=== PATIENT | female | born 1955 | race Caucasian/White ===

== ENCOUNTER → 2018-01-18 | Outpatient (CLI) | payer MEDICARE, OTHER ==
[~2018-01-18] MED LIST: ALBU90OI INH; ALBU90OI61 INH; AMPDEX10 PO; ATOR20 PO; ATOR40TA PO; Adderall 15 MG15 MG PO; BENZ100A PO; Benadryl 50 mg50 MG PO; Bystolic20 MG PO; CYCL10 PO; ESCI20 PO; HYDACE5 PO; HYDCHL12.5 PO; HYDR1TAB94 PO; LEVO750 PO; LEVSOD100 PO; LEVSOD150 PO; LISHYD2025 PO; LISI5 PO; LORA.5 PO; META800 PO; METF500 PO; NAPR500 PO; NEBI10 PO; Naprosyn500 MG PO; Norco 10-325 T1 EACH PO; Norco 5-325 Ta1 EACH PO; POTCHL10ER PO; Prednisone50 MG PO; TOBR.3OPSO BOTHEYES; VENL150ER PO; VENL75ER PO; ZESTORETIC 20-121 EA PO
[2018-01-19 09:37] LABS: Candida species (DNA Probe) Negative (NEGATIVE); G. vaginalis (DNA Probe) Negative (NEGATIVE); T. vaginalis (DNA Probe) Negative (NEGATIVE)
== END | disposition home or self-care (01) ==
LOC: LAB SHORT 13:50 → LAB 13:50
PROVIDERS: Obstetrics & Gynecology
DX: Z01.419 Encounter for gynecological examination (general) (routine) without abnormal findings (principal); N76.0 Acute vaginitis
CPT/HCPCS: 87480; 87510; 87624; 87660; G0123

== ENCOUNTER → 2018-03-01 | Outpatient (CLI) | payer MEDICARE, OTHER ==
[2018-03-01 12:49] LABS: Source, Urine Clean Catch
[2018-03-01 13:44] LABS: Appearance, Urine Clear (Clear); Bilirubin, Urine Neg (Neg); Blood, Urine Neg (Neg); Color, Urine Yellow (P-Yellow); Glucose Qualitative, Urine Neg (Normal); Ketones, Urine Neg (Neg); Leukocyte Esterase, Urine Neg (Neg); Nitrite, Urine Neg (Neg); Protein, Urine Neg (Neg); Urobilinogen, Urine NORM (Normal)
[2018-03-01 16:05] LABS: Protein, Urine Random 22.4 mg/dL (0.0-11.9)
== END ==
LOC: LAB SHORT 11:45 → LAB EV 11:45
PROVIDERS: Internal Medicine
DX: N18.3 Chronic kidney disease, stage 3 (moderate) (principal)
CPT/HCPCS: 81003; 82570; 84156

== ENCOUNTER 2018-11-25 23:43 | Inpatient (IN) | payer MEDICARE, OTHER ==
[~2018-11-25] VITALS: Ht 152.4 cm; Wt 87.2 kg
[~2018-11-25 23:43] MED LIST changes: -LEVSOD100 PO; +LEVSOD125 PO
[2018-11-26 00:10] LABS: BASOPHILS ABSOLUTE AUTO 0.03 K/mm3 (0.00-0.23); BASOPHILS PERCENT AUTO 0 % (0-2); EOSINOPHILS PERCENT AUTO 2 % (0-6); Hematocrit 41.8 % (33.0-51.0); Hemoglobin 13.7 g/dL (11.5-16.0); IMMATURE GRAN ABSOLUTE AUTO 0.01 K/mm3 (0.00-0.10); IMMATURE GRAN PERCENT AUTO 0 % (0-1); LYMPHOCYTES ABSOLUTE AUTO 1.27 K/mm3 (0.84-5.20); LYMPHOCYTES PERCENT AUTO 16 % (21-46); MONOCYTES ABSOLUTE AUTO 0.93 K/mm3 (0.16-1.47); MONOCYTES PERCENT AUTO 11 % (4-13); Mean Corpuscular HGB 30.2 pg (26.0-34.0); Mean Corpuscular HGB Conc 32.8 g/dL (31.5-36.5); Mean Corpuscular Volume 92 fL (80-100); Mean Platelet Volume 9.8 fL (9.1-12.4); NEUTROPHILS ABSOLUTE AUTO 5.74 K/mm3 (1.96-9.15); NEUTROPHILS PERCENT AUTO 70 % (41-73); Platelet Count 222 K/mm3 (150-400); RDW Standard Deviation 47.2 fL (35.1-46.3); Red Blood Cell Count 4.54 M/mm3 (3.80-5.20); White Blood Cell Count 8.18 K/mm3 (4.00-11.30)
[2018-11-26 00:13] LABS: PCO2 Arterial 43.8 mmHg (35-45); PO2 Arterial 75.3 mmHg (80-100); pH Blood Arterial 7.41 (7.35-7.45)
[2018-11-26 00:31] LABS: Alanine Aminotransfer (ALT/SGP 39 U/L (12-78); Albumin, Blood 3.3 g/dL (3.4-5.0); Albumin/Globulin Ratio 0.7 (0.8-1.8); Alk Phos 91 U/L (50-136); Anion Gap 8 mmol/L (6-16); Aspartate Aminotrans (AST/SGOT 27 U/L (12-37); Bilirubin, Total 0.3 mg/dL (0.1-1.0); Blood Urea Nitrogen 25 mg/dL (8-24); Bun/Creatinine Ratio 19.4 (12.0-20.0); CO2, Blood 27 mmol/L (21-32); Calcium, Blood 8.8 mg/dL (8.5-10.1); Chloride, Blood 103 mmol/L (98-108); Creatinine, Blood 1.29 mg/dL (0.40-1.00); Globulin, Blood 4.6 g/dL (2.2-4.0); Glomerular Filtration Rate 44 (60-); Glucose, Blood 142 mg/dL (70-99); Sodium, Blood 138 mmol/L (136-145); Total Protein, Blood 7.9 g/dL (6.4-8.2); Troponin I <0.015 ng/mL (0.000-0.040)
[2018-11-26 03:38] LABS: Influenza A Negative (NEGATIVE)
[2018-11-26 03:39] LABS: Influenza B Negative (NEGATIVE)
--- NOTE | 2018-11-26 04:49 | NUR ---
Notified charge nurse as well as nurse film editor supervisor that this transfer did not seem safe to me as a nurse, I was informed I had to take her anyway, they were doing the best the could and could not stop a hospital because the computer was down, the er nurse was very helpful and knowlegable but did not have access to labs or any other written history of pt and had to report from memory, due to change in procedure and necissity to process by hand medication was slow to be approved, they had to be safe, all this added up to a pt who did not receive her medication when it was perscribed, pt was not in pixus, and the medtech was unavailable, staff was wonderful and helpful but it seemed nonproductive to move a critical pt out of ER to [facility] knowing that any error would be compounded by the move and the chance of error was exponential due to the change in procedure and lack of resources
--- NOTE | 2018-11-26 07:21 | NUR ---
a+o, 2Lvia nc, infusing abx, call light in reach, will continue to monitor and treat until complete walking rounds
[2018-11-26] MEDS ORDERED: Zestril30 MG PO (11:34)
[2018-11-26] MEDS ORDERED: Fenofibrate134 MG PO (11:36)
--- NOTE | 2018-11-26 18:18 | NUR ---
SHIFT SUMMARY PT HAS BEEN COOPERATIVE THROUGHOUT THE SHIFT. SHE WAS ABLE TO GET UP AND WALK TO THE BR WITH STAFF BUT HAS EPISODES WHERE SHE LOSES HER BALANCE. SHE HAS HAD FAMILY COME VISIT. SHE APPEARS CONFUSED AT TIMES AND FORGETFUL. SHE TOOK HER MEDICATIONS WITHOUT INCIDENT. SHE IS DIAPHORETIC THROUGHOUT THE DAY AND STATES THIS IS NORMAL FOR HER.
--- NOTE | 2018-11-26 18:42 | NUR ---
PT TAKEN OFF O2 BRIEFLY TODAY, PT DESAT DOWN TO 87-88, PT PLACED BACK ON 2L NC
[2018-11-27 05:12] LABS: BASOPHILS PERCENT AUTO 0 % (0-2); EOSINOPHILS ABSOLUTE AUTO 0.01 K/mm3 (0.00-0.68); EOSINOPHILS PERCENT AUTO 0 % (0-6); Hematocrit 39.4 % (33.0-51.0); Hemoglobin 12.4 g/dL (11.5-16.0); IMMATURE GRAN ABSOLUTE AUTO 0.03 K/mm3 (0.00-0.10); IMMATURE GRAN PERCENT AUTO 0 % (0-1); LYMPHOCYTES ABSOLUTE AUTO 0.92 K/mm3 (0.84-5.20); LYMPHOCYTES PERCENT AUTO 12 % (21-46); MONOCYTES ABSOLUTE AUTO 0.34 K/mm3 (0.16-1.47); MONOCYTES PERCENT AUTO 4 % (4-13); Mean Corpuscular HGB 29.2 pg (26.0-34.0); Mean Corpuscular HGB Conc 31.5 g/dL (31.5-36.5); Mean Corpuscular Volume 93 fL (80-100); Mean Platelet Volume 10.3 fL (9.1-12.4); NEUTROPHILS ABSOLUTE AUTO 6.64 K/mm3 (1.96-9.15); NEUTROPHILS PERCENT AUTO 84 % (41-73); Platelet Count 210 K/mm3 (150-400); RDW Standard Deviation 47.7 fL (35.1-46.3); Red Blood Cell Count 4.24 M/mm3 (3.80-5.20); White Blood Cell Count 7.94 K/mm3 (4.00-11.30)
[2018-11-27 06:03] LABS: Albumin, Blood 2.9 g/dL (3.4-5.0); Bun/Creatinine Ratio 24.7 (12.0-20.0); Calcium, Blood 8.8 mg/dL (8.5-10.1); Creatinine, Blood 1.66 mg/dL (0.40-1.00); Magnesium, Blood 2.3 mg/dL (1.6-2.4); Phosphorus, Blood 4.3 mg/dL (2.5-4.9); Potassium, Blood 4.4 mmol/L (3.5-5.5)
[2018-11-27 06:05] LABS: Albumin/Globulin Ratio 0.7 (0.8-1.8); Bilirubin, Total 0.2 mg/dL (0.1-1.0); Globulin, Blood 4.3 g/dL (2.2-4.0); Total Protein, Blood 7.2 g/dL (6.4-8.2)
--- NOTE | 2018-11-27 07:24 | NUR ---
a+o, call light in reach, nonproductive cough, saline locked, walking rounds completed with day staff
--- NOTE | 2018-11-27 18:05 | NUR ---
SHIFT SUMMARY- PT AXO X3. PT FORGETFUL. PT DENIES PAIN. DENIES SOB AT REST. DYSPNEA UPON EXERTION. 91% ON 2L O2 NC. DENIES N/V. FAMILY IN TO VISIT THIS PM. SBA TO THE BATHROOM. PT AWAITING HOME O2 EVAL. NO OTHER SIGNIFICANT CHANGES THIS SHIFT.
--- NOTE | 2018-11-28 07:18 | NUR ---
a+o, very cheerful and eager to please, non productive cough, call light in reach, saline locked, 2L via nc, walking rounds completed with returning day staff, looking forward to going home
[2018-11-28] MEDS ORDERED: AZIT250 PO (11:31)
[2018-11-28] MEDS ORDERED: Florastor250 MG PO (11:33)
[2018-11-28] MEDS ORDERED: PRED10 PO (11:33)
[2018-11-28] MEDS ORDERED: BUDE10.22 INH (11:34)
--- NOTE | 2018-11-28 14:16 | NUR ---
Called to meet with patient. She is awaiting her oxygena nd she is discharging home. Pt is embarrassed and stessed. She relayed her history with her adhd and her anexiety and depression. Review mellisa strategies of diversion from her anexiety. Pt switched to vaping to try to quit smoking. she states she is having with drawls. Review of care and when to contact phsycian. review of with drawls and care needs. did visualization with her she expressed its usefulness.
--- NOTE | 2018-11-28 15:55 | NUR ---
D/C INSTRUCTIONS PROVIDED AND EXPLAINED TO PT. IV REMOVED. PT D/C VIA WHEELCHAIR WITH ESCORT AND SIGNIFICANT OTHER AT 1555.
== END 2018-11-28 15:46 | disposition home or self-care (01) | DRG 189 ==
LOC: ER 23:43 → MEDS 11-26 01:15 → ENPENDDIS 11-28 09:23 → MEDS 11-28 15:46
PROVIDERS: Emergency Medicine; Hospitalist; ADMIT Hospitalist
DX: J96.01 Acute respiratory failure with hypoxia (principal); J44.1 Chronic obstructive pulmonary disease with (acute) exacerbation; E03.9 Hypothyroidism, unspecified; E66.01 Morbid (severe) obesity due to excess calories; G47.33 Obstructive sleep apnea (adult) (pediatric); F90.9 Attention-deficit hyperactivity disorder, unspecified type; I13.10 Hypertensive heart and chronic kidney disease without heart failure, with stage 1 through stage 4 chronic kidney disease, or unspecified chronic kidney disease; E11.22 Type 2 diabetes mellitus with diabetic chronic kidney disease; N18.3 Chronic kidney disease, stage 3 (moderate); Z87.891 Personal history of nicotine dependence; Z68.35 Body mass index [BMI] 35.0-35.9, adult; I51.89 Other ill-defined heart diseases; F32.9 Major depressive disorder, single episode, unspecified; M54.5 Low back pain
CPT/HCPCS: 36415; 36600; 71045; 80053; 82803; 82947; 83735; 83880; 84100; 84145; 84484; 85025; 87804; 93005; 93010; 93306; 94640; 94667; 94761; 94762; 96374; 99285-25; A9270-GY; J0456; J0696; J1650; J2543; J2920; J2930; J7050

== ENCOUNTER 2019-01-09 22:29 | Emergency (ER) | payer MEDICARE, OTHER ==
[~2019-01-09] VITALS: Ht 152.4 cm; Wt 85.7 kg
[~2019-01-09 22:29] MED LIST changes: +AZIT250 PO; +BUDE10.22 INH; +Fenofibrate134 MG PO; +Florastor250 MG PO; +PRED10 PO; +Zestril30 MG PO
[2019-01-10] MEDS ORDERED: TRAM50 PO (01:21)
== END 2019-01-10 01:29 | disposition home or self-care (01) ==
LOC: ER 22:29
DX: S00.03XA Contusion of scalp, initial encounter (principal); W18.30XA Fall on same level, unspecified, initial encounter; Z88.2 Allergy status to sulfonamides; Z88.1 Allergy status to other antibiotic agents; Z88.8 Allergy status to other drugs, medicaments and biological substances; Z79.899 Other long term (current) drug therapy; Z79.52 Long term (current) use of systemic steroids; E03.9 Hypothyroidism, unspecified; F32.9 Major depressive disorder, single episode, unspecified; J44.9 Chronic obstructive pulmonary disease, unspecified; F17.290 Nicotine dependence, other tobacco product, uncomplicated
CPT/HCPCS: 70450; 99283-25; A9270-GY

== ENCOUNTER 2019-02-11 23:40 | Emergency (ER) | payer MEDICARE, OTHER ==
[~2019-02-11] VITALS: Ht 152.4 cm; Wt 84.8 kg
[~2019-02-11 23:40] MED LIST changes: +TRAM50 PO
[2019-02-12 00:23] LABS: BASOPHILS ABSOLUTE AUTO 0.03 K/mm3 (0.00-0.23); BASOPHILS PERCENT AUTO 0 % (0-2); EOSINOPHILS ABSOLUTE AUTO 0.18 K/mm3 (0.00-0.68); EOSINOPHILS PERCENT AUTO 2 % (0-6); Hematocrit 39.9 % (33.0-51.0); Hemoglobin 12.8 g/dL (11.5-16.0); IMMATURE GRAN ABSOLUTE AUTO 0.02 K/mm3 (0.00-0.10); IMMATURE GRAN PERCENT AUTO 0 % (0-1); LYMPHOCYTES ABSOLUTE AUTO 2.28 K/mm3 (0.84-5.20); LYMPHOCYTES PERCENT AUTO 26 % (21-46); MONOCYTES ABSOLUTE AUTO 0.78 K/mm3 (0.16-1.47); MONOCYTES PERCENT AUTO 9 % (4-13); Mean Corpuscular HGB 29.9 pg (26.0-34.0); Mean Corpuscular HGB Conc 32.1 g/dL (31.5-36.5); Mean Corpuscular Volume 93 fL (80-100); Mean Platelet Volume 10.3 fL (9.1-12.4); NEUTROPHILS ABSOLUTE AUTO 5.47 K/mm3 (1.96-9.15); NEUTROPHILS PERCENT AUTO 63 % (41-73); Platelet Count 233 K/mm3 (150-400); RDW Coefficient Variation 14.4 % (11.7-14.2); RDW Standard Deviation 49.4 fL (35.1-46.3); Red Blood Cell Count 4.28 M/mm3 (3.80-5.20); White Blood Cell Count 8.76 K/mm3 (4.00-11.30)
[2019-02-12 00:44] LABS: Albumin, Blood 3.5 g/dL (3.4-5.0); Albumin/Globulin Ratio 0.8 (0.8-1.8); Bilirubin, Total 0.2 mg/dL (0.1-1.0); Bun/Creatinine Ratio 16.1 (12.0-20.0); Calcium, Blood 9.5 mg/dL (8.5-10.1); Creatinine, Blood 1.68 mg/dL (0.40-1.00); Globulin, Blood 4.5 g/dL (2.2-4.0); Potassium, Blood 3.8 mmol/L (3.5-5.5); Troponin I 0.037 ng/mL (0.000-0.040)
== END 2019-02-12 02:39 | disposition home or self-care (01) ==
LOC: ER 23:40
PROVIDERS: Emergency Medicine
DX: S20.212A Contusion of left front wall of thorax, initial encounter (principal); W19.XXXA Unspecified fall, initial encounter; Z88.2 Allergy status to sulfonamides; Z88.1 Allergy status to other antibiotic agents; Z88.8 Allergy status to other drugs, medicaments and biological substances; Z79.899 Other long term (current) drug therapy; F32.9 Major depressive disorder, single episode, unspecified; J44.9 Chronic obstructive pulmonary disease, unspecified; I10 Essential (primary) hypertension; F90.9 Attention-deficit hyperactivity disorder, unspecified type; Z87.891 Personal history of nicotine dependence
CPT/HCPCS: 36415; 71046; 80053; 84484; 85025; 93005; 93010; 99284-25

== ENCOUNTER 2019-09-01 18:09 | Inpatient (IN) | payer MEDICARE, OTHER ==
[~2019-09-01] VITALS: Ht 160 cm; Wt 92.0 kg
[~2019-09-01 18:09] MED LIST changes: +EUTHYROX125 MCG PO; -LEVSOD125 PO; +Prinivil10 MG PO; -Zestril30 MG PO
[2019-09-01 18:45] LABS: BASOPHILS ABSOLUTE AUTO 0.02 K/mm3 (0.00-0.23); BASOPHILS PERCENT AUTO 0 % (0-2); EOSINOPHILS ABSOLUTE AUTO 0.06 K/mm3 (0.00-0.68); EOSINOPHILS PERCENT AUTO 1 % (0-6); IMMATURE GRAN ABSOLUTE AUTO 0.04 K/mm3 (0.00-0.10); IMMATURE GRAN PERCENT AUTO 1 % (0-1); LYMPHOCYTES PERCENT AUTO 8 % (21-46); MONOCYTES ABSOLUTE AUTO 0.91 K/mm3 (0.16-1.47); MONOCYTES PERCENT AUTO 12 % (4-13); Mean Corpuscular HGB 29.5 pg (26.0-34.0); Mean Corpuscular HGB Conc 32.5 g/dL (31.5-36.5); Mean Corpuscular Volume 91 fL (80-100); Mean Platelet Volume 10.2 fL (9.1-12.4); NEUTROPHILS ABSOLUTE AUTO 5.75 K/mm3 (1.96-9.15); NEUTROPHILS PERCENT AUTO 78 % (41-73); Platelet Count 234 K/mm3 (150-400); RDW Coefficient Variation 14.8 % (11.7-14.2); RDW Standard Deviation 49.4 fL (35.1-46.3); White Blood Cell Count 7.38 K/mm3 (4.00-11.30)
[2019-09-01 18:55] LABS: Albumin, Blood 3.5 g/dL (3.4-5.0); Albumin/Globulin Ratio 0.7 (0.8-1.8); Bilirubin, Total 0.3 mg/dL (0.1-1.0); Bun/Creatinine Ratio 18.7 (12.0-20.0); Calcium, Blood 9.5 mg/dL (8.5-10.1); Creatinine, Blood 1.23 mg/dL (0.40-1.00); Globulin, Blood 4.7 g/dL (2.2-4.0); Potassium, Blood 3.8 mmol/L (3.5-5.5); Total Protein, Blood 8.2 g/dL (6.4-8.2)
[2019-09-01 19:27] LABS: PCO2 Arterial 45.3 mmHg (35-45); PO2 Arterial 72.8 mmHg (80-100); pH Blood Arterial 7.41 (7.35-7.45)
[2019-09-01 19:42] LABS: Source, Urine Catheter
[2019-09-01 19:45] LABS: Appearance, Urine Clear (Clear); Bilirubin, Urine Neg (Neg); Blood, Urine 4+ (Neg); Color, Urine Yellow (P-Yellow); Glucose Qualitative, Urine Neg (Neg); Ketones, Urine Neg (Neg); Leukocyte Esterase, Urine Neg (Neg); Nitrite, Urine Neg (Neg); Protein, Urine 3+ (Neg); Specific Gravity, Urine 1.015 (1.003-1.022); Urobilinogen, Urine 1+ (Normal)
[2019-09-01 19:51] LABS: Amorphous Light (0-Heavy); Bacteria Few /hpf; Hyaline Casts 0-2 /lpf (0-2); Squamous Epithelial Cells Few /hpf (Few); White Blood Cells, Urine 0-2 /hpf (0-5)
[2019-09-01 21:34] LABS: U Amphetamine Screen DETECTED; U Barbituate Screen Not Detected; U Benzodiazapine Screen Not Detected; U Buprenorphine Screen Not Detected; U Cannabinoids Screen Not Detected; U Cocaine Screen Not Detected; U Methadone Screen Not Detected; U Methamphetamine Screen DETECTED; U Opiates Screen DETECTED; U Oxycodone Screen Not Detected; U Phencyclidine Screen Not Detected; U Propoxyphene Screen Not Detected
[2019-09-02] MEDS ORDERED: ASPIR 8181 M1 PO (00:27)
[2019-09-02] MEDS ORDERED: STIOLTO RESPIMAT4 GM (00:59)
--- NOTE | 2019-09-02 02:25 | NUR ---
ADMISSION: PATIENT ARRIVED TO [facility] AT APPROX 0016 VIA GURNEY FROM ER, PATIENT UNSTEADY ON FEET AND OFF BALANCEWITH STANDING. PATIENT 2 PERSON WITH FWW TO BS, SKIN C/D/I. ADMISSION COMPLETED AND PATIENT ORIENTED TO ROOM, CALL LIGHT AND HOSPITAL POLICIES. PATIENT ALERT AND ABLE TO ANSWER QUESTIONS APPROPRIATLY AT THIS TIME. BEDSIDE SWALLOW SCREEN COMPLETED, PATIENT PASSED, DIET ORDERED PER HOSE OPERATOR. VSS, CALL LIGHT WITHIN REACH, BED LOW AND LOCKED WITH EXIT ALARM ON.
[2019-09-02 04:19] LABS: Hematocrit 37.8 % (33.0-51.0); Mean Corpuscular HGB 29.3 pg (26.0-34.0); Mean Corpuscular HGB Conc 31.7 g/dL (31.5-36.5); Mean Corpuscular Volume 92 fL (80-100); Mean Platelet Volume 10.2 fL (9.1-12.4); Platelet Count 226 K/mm3 (150-400); RDW Coefficient Variation 15.2 % (11.7-14.2); RDW Standard Deviation 51.4 fL (35.1-46.3); Red Blood Cell Count 4.09 M/mm3 (3.80-5.20); White Blood Cell Count 5.69 K/mm3 (4.00-11.30)
[2019-09-02 04:37] LABS: Albumin, Blood 2.9 g/dL (3.4-5.0); Albumin/Globulin Ratio 0.6 (0.8-1.8); Bilirubin, Total 0.2 mg/dL (0.1-1.0); Bun/Creatinine Ratio 18.8 (12.0-20.0); Calcium, Blood 8.8 mg/dL (8.5-10.1); Creatinine, Blood 1.49 mg/dL (0.40-1.00); Globulin, Blood 4.5 g/dL (2.2-4.0); Potassium, Blood 3.8 mmol/L (3.5-5.5); Total Protein, Blood 7.4 g/dL (6.4-8.2)
--- NOTE | 2019-09-02 06:28 | NUR ---
shift summary: patient compliant with care, using call light appropriatly, 2 person max assist to bsc, vss. no other changes noted, call light within reach, bed low and locked with exit alarm on.
--- NOTE | 2019-09-02 09:15 | NUR ---
ASSUMPTION NOTE ASSUMED CARE OF PT AT APPROX 0700. PT RESTING IN BED, APPEARS TO BE SLEEPING. CPAP IN PLACE WITH 3L BLEED IN; PT DESATURATING TO 86-87% TITRATED BLEED IN TO 4L O2 WITH SPO2 AT 90%. PT ON 2L O2 VIA NC WHILE AWAKE CURRENTLY SPO2 90-91%; LS DIM IN BASES WITH FAINT EXP WHEEZE IN BILATERAL UPPER LOBES. PT RESP RATE 16-20; NONPRODUCTIVE HARSH COUGH NOTED; PT REPORTS RIB TENDERNESS WITH COUGHING. PT A&Ox3. CALM AND COOPERATIVE WITH CARE. REPOSITIONED IN BED WITH 2 PERSON ASSIST, ENCOURAGED PT TO ASSIST WITH REPOSITIONING. ABD DISTENDED; SOFT, NONTENDER, WITH NORMOACTIVE BOWEL TONES. ELEVATED BP THIS AM, MEDICATED WITH SCHEDULE MEDCIATIONS. AFEBRILE. PT SITTING UP IN BED EATING BREAKFAST. WILL CONTINUE TO MONITOR.
--- NOTE | 2019-09-02 15:28 | NUR ---
Echocardiogram completed.
--- NOTE | 2019-09-02 18:33 | NUR ---
SHIFT SUMMARY PT REPORTING PAIN IN BACK AND SHOULDER; MEDICATED WITH TYLENOL WITH MINIMAL RELEIF; PT REQUESTING HOME NORCO; NOTIFIED DR KEY; NEW ORDERS FOR HOME NORCO. PT FEBRILE THIS AFTERNOON; DR KEY NOTIFIED; PT HAS HAD COUGH " FOR A COUPLE OF DAYS"; NEW ORDERS FOR RESP PANEL, PENDING. ORDERS TO SEND UA TO LAB FOR AMPH COMFIRMATION, STILL NEEDING URINE. CBG AC; THIS EVENING 123. EKG AND ECHO COMPLETED DURING SHIFT. TROP ELEVATED; NOTIFIED DR KEY; NEW ORDERS FOR CARDIOLOGY CONSULT; DR FISHER AT BEDSIDE THIS AFTERNOON. NO OTHER ACUTE CHANGES NOTED DURING SHIFT. WILL CONTINUE TO MONITOR UNTIL REPORT GIVEN TO ONCOMING RN.
[2019-09-03 00:08] LABS: Adenovirus Not Detected (NOT DETECT); Bordetella pertussis Not Detected (NOT DETECT); Chlamydophila pneumoniae Not Detected (NOT DETECT); Coronavirus 229E Not Detected (NOT DETECT); Coronavirus HKU1 Not Detected (NOT DETECT); Coronavirus NL63 Not Detected (NOT DETECT); Coronavirus OC43 Not Detected (NOT DETECT); Human Metapneumovirus Not Detected (NOT DETECT); Human Rhinovirus/Enterovirus Not Detected (NOT DETECT); Influenza A Detected (NOT DETECT); Influenza A/2009-H1 Detected (NOT DETECT); Influenza A/H1 Not Detected (NOT DETECT); Influenza A/H3 Not Detected (NOT DETECT); Influenza B Not Detected (NOT DETECT); Mycoplasma pneumoniae Not Detected (NOT DETECT); Parainfluenza Virus 1 Not Detected (NOT DETECT); Parainfluenza Virus 2 Not Detected (NOT DETECT); Parainfluenza Virus 3 Not Detected (NOT DETECT); Parainfluenza Virus 4 Not Detected (NOT DETECT); Respiratory Syncytial Virus Not Detected (NOT DETECT)
[2019-09-03 04:31] LABS: Albumin, Blood 2.9 g/dL (3.4-5.0); Albumin/Globulin Ratio 0.7 (0.8-1.8); Bilirubin, Total 0.3 mg/dL (0.1-1.0); Bun/Creatinine Ratio 22.1 (12.0-20.0); Calcium, Blood 8.5 mg/dL (8.5-10.1); Creatinine, Blood 1.49 mg/dL (0.40-1.00); Globulin, Blood 4.4 g/dL (2.2-4.0); Total Protein, Blood 7.3 g/dL (6.4-8.2)
--- NOTE | 2019-09-03 05:40 | NUR ---
SHIFT SUMMARY: PATEINT MEDICATED FOR PAIN X1 THIS SHIFT, INTERMITTENT TEMPERATURE, SLEPT WELL. PATIENT RESPERATORY PANEL POSITIVE FOR INFLUENZA A, TROPONINS TRENDING DOWN. UA SENT FOR FOLLOW UP TEST, BED LOW AND LOCKED, CALL LIGHT WITHIN REACH, EXIT ALARM ON.
--- NOTE | 2019-09-03 08:40 | NUR ---
ASSUMPTION OF CARE PT RESTING IN BED; RESPONDING TO VERBAL STIMULI; WAKING LONG ENOUGH TO ANSWER QUESTIONS; LETHARGIC. SPO2 89-94 ON 3L O2 VIA NC; LS DIM SCATTERED WHEEZES IN UPPER LOBES. TACHYPNIC AT TIMES; BREATHING SHALLOW AND EVEN. COUGHING NOTED WITH DEEP BREATH; NONPRODUCTIVE AND HARSH. PT DENIES PAIN, NAUSEA AND DIZZINESS AT THIS TIME. PT STATES SHE WAS TO EAT THIS AM, UNALBE TO STAY AWAKE, HELD BREAKFAST. ELEVATED BP NOTED; ADMINISTERED SCHEDULED MEDICATIONS. OTHER VSS. WILL CONTINUE TO MONITOR.
--- NOTE | 2019-09-03 17:39 | NUR ---
SHIFT SUMMARY PT RESPONDING TO VERBAL STIMULI, ORIENTED x3; LETHARGIC; COOPERATIVE WITH CARE. PT RESTING IN BED DURING SHIFT. PT REPOSITIONED Q2; PT ASSISTS. SPO2 90-96% CURRENTLY ON 4L O2 VIA NC, CPAP WITH 3-4 BLEED IN. PT DENIES PAIN, CHEST PAIN/PRESSURE, NAUSEA AND DIZZINESS. PT STARTED ON TAMIFLU THIS AM. VSS. NO OTHER ACUTE CHANGES NOTED DURING SHIFT. WILL CONTINUE TO MONITOR UNTIL REPORT GIVEN TO ONCOMING RN.
--- NOTE | 2019-09-03 18:29 | NUR ---
PT ALERT, SITTING IN BED, BOYFRIEND AT BED SIDE ASSISTING WITH DINNER. WILL CONTINUE TO MONITOR.
--- NOTE | 2019-09-04 05:28 | NUR ---
END OF SHIFT SUMMARY PT CONTINUES TO BE VERY LETHARGIC BUT DOES WAKE AND SPEAK WITH SDTAF APPROPRIATELY. VSS. PT HAS TOLERATED CPAP ALL NIGHT. RT TO ROOM T/O NIGHT TO ADJUST SETTINGS PT HAS DESATTED A FEW TIMES INTO THE LOW 80'S. PT LUNG SOUNDS WHEEZY, HAS REQUIRED RT TREATMWENTS WELL. PT INCONTINENT T/O NIGHT. STAFF HAS BEEN TURNING AND CLEANING PT. OTHERWISE, PT HAS BEEN VERY PLEASANT AND COOPERATIVE AND HAS EVEN HELPED WITH TURNING. WILL CONTINUE TO MONITOR UNTIL SHIFT CHANGE.
[2019-09-04 05:40] LABS: BASOPHILS ABSOLUTE AUTO 0.01 K/mm3 (0.00-0.23); BASOPHILS PERCENT AUTO 0 % (0-2); EOSINOPHILS ABSOLUTE AUTO 0.01 K/mm3 (0.00-0.68); EOSINOPHILS PERCENT AUTO 0 % (0-6); Hematocrit 37.3 % (33.0-51.0); Hemoglobin 11.6 g/dL (11.5-16.0); IMMATURE GRAN ABSOLUTE AUTO 0.01 K/mm3 (0.00-0.10); IMMATURE GRAN PERCENT AUTO 0 % (0-1); LYMPHOCYTES ABSOLUTE AUTO 1.18 K/mm3 (0.84-5.20); LYMPHOCYTES PERCENT AUTO 20 % (21-46); MONOCYTES PERCENT AUTO 12 % (4-13); Mean Corpuscular HGB 29.2 pg (26.0-34.0); Mean Corpuscular HGB Conc 31.1 g/dL (31.5-36.5); Mean Corpuscular Volume 94 fL (80-100); Mean Platelet Volume 10.5 fL (9.1-12.4); NEUTROPHILS PERCENT AUTO 68 % (41-73); Platelet Count 180 K/mm3 (150-400); RDW Coefficient Variation 15.7 % (11.7-14.2); RDW Standard Deviation 54.1 fL (35.1-46.3); Red Blood Cell Count 3.97 M/mm3 (3.80-5.20); White Blood Cell Count 6.01 K/mm3 (4.00-11.30)
--- NOTE | 2019-09-04 19:24 | NUR ---
SHIFT SUMMARY: NO ACUTE CHANGES TO REPORT THIS SHIFT. PT ALERT; LETHARGIC DURING FIRST HALF OF SHIFT; COOPERATIVE WITH CARE. BIPAP ON T/O SHIFT. NO C/O PAIN THIS SHIFT. POC GLUCOSE STABLE; NO COVERAGE REQUIRED THIS SHIFT. IV ABX CONTINUING. REPORT GIVEN TO ONCOMING RN.
[2019-09-05 04:30] LABS: Calcium, Blood 8.3 mg/dL (8.5-10.1); Creatinine, Blood 1.93 mg/dL (0.40-1.00); Potassium, Blood 4.5 mmol/L (3.5-5.5)
--- NOTE | 2019-09-05 04:30 | NUR ---
END OF SHIFT SUMMARY NO ACUTE CHANGES THIS SHIFT. VSS. AFEBRILE. PT STILL LETHARGIC BUT MAKES APPROPRIATE CONVERSAtion and is overall much more alert this shift. REMAINS ON 5LNC OR 5L BLEED IN CPAP. SPO2 REMAINS >92%. PT HAS BEEN TURNMED BY STAFF WELL HAD MULTIPLE INCONTINENCE CHECKS/BRIEF CHANGES. LUNGS STILL WHEEZY AND SOMEWHAT COARSE TO AUSCULTATION BUT SHOWS IMPROVEMENT. WILL CONTINUE TO MONITOR UNTIL SHIFT CHANGE.
--- NOTE | 2019-09-05 08:30 | NUR ---
ASSUMPTION OF CARE RECEIVED REPORT FROM BRANCH GENERAL MANAGER YOLIE CHAPMAN AROUND 704. PER SHIFT REPORT, PT CAN BE LETHARGIC AT TIMES, BUT IS OVERALL IMPROVING. PT IS CURRENTLY AAOX3, CONVERSING, & FOLLOWING COMMANDS. VS STABLE. PT ON 5L O2 VIA NC, PULSE OX 91-93%, AT PT'S BASELINE. PT DENIES ANY PAIN OR SOB. BED LOCKED & IN LOWEST POSITION, CALL HAYS W/ IN REACH. DROPLET ISOLATION PRECAUTIONS REMAIN IN PLACE FOR INFLUENZA/H1N1. WILL CONTINUE TO MONITOR.
--- NOTE | 2019-09-05 17:38 | NUR ---
SHIFT SUMMARY NO ACUTE CHANGES THROUGHOUT SHIFT. PT REMAINED ALERT FOR MOST OF DAY, BUT DID HAVE PERIODS OF LETHARY & FORGETFULNESS. PT DENIED ANY C/O CHEST PAIN/PRESSURE; SOME MILD SOB NOTED W/ EXERTION. PT REMAINS ON 5L 02 VIA NC, PULSE OX MAINTAINING 91-95%. PT CURRENTLY AWAKE, SITTING IN CHAIR EATING DINNER. INCONTINENCE CARE RENDERED FREQ; TURNED Q2H. WILL CONTINUE TO MONITOR UNTIL END OF SHIFT.
[2019-09-06 04:45] LABS: BASOPHILS ABSOLUTE AUTO 0.01 K/mm3 (0.00-0.23); BASOPHILS PERCENT AUTO 0 % (0-2); EOSINOPHILS PERCENT AUTO 0 % (0-6); Hematocrit 36.8 % (33.0-51.0); Hemoglobin 11.7 g/dL (11.5-16.0); IMMATURE GRAN ABSOLUTE AUTO 0.02 K/mm3 (0.00-0.10); IMMATURE GRAN PERCENT AUTO 0 % (0-1); LYMPHOCYTES ABSOLUTE AUTO 0.92 K/mm3 (0.84-5.20); LYMPHOCYTES PERCENT AUTO 18 % (21-46); MONOCYTES ABSOLUTE AUTO 0.52 K/mm3 (0.16-1.47); MONOCYTES PERCENT AUTO 10 % (4-13); Mean Corpuscular HGB 29.3 pg (26.0-34.0); Mean Corpuscular HGB Conc 31.8 g/dL (31.5-36.5); Mean Corpuscular Volume 92 fL (80-100); Mean Platelet Volume 10.4 fL (9.1-12.4); NEUTROPHILS PERCENT AUTO 71 % (41-73); Platelet Count 153 K/mm3 (150-400); RDW Coefficient Variation 14.8 % (11.7-14.2); RDW Standard Deviation 50.9 fL (35.1-46.3); Red Blood Cell Count 3.99 M/mm3 (3.80-5.20); White Blood Cell Count 5.07 K/mm3 (4.00-11.30)
[2019-09-06 05:07] LABS: Albumin, Blood 2.3 g/dL (3.4-5.0); Albumin/Globulin Ratio 0.6 (0.8-1.8); Bilirubin, Total 0.2 mg/dL (0.1-1.0); Bun/Creatinine Ratio 38.1 (12.0-20.0); C-REACTIVE PROTEIN, EXT RANGE 1.34 mg/dL (0.000-0.300); Calcium, Blood 8.5 mg/dL (8.5-10.1); Creatinine, Blood 1.76 mg/dL (0.40-1.00); Globulin, Blood 4.1 g/dL (2.2-4.0); Magnesium, Blood 2.4 mg/dL (1.6-2.4); Phosphorus, Blood 3.8 mg/dL (2.5-4.9); Potassium, Blood 4.6 mmol/L (3.5-5.5); Total Protein, Blood 6.4 g/dL (6.4-8.2)
--- NOTE | 2019-09-06 05:45 | NUR ---
PATIENT CONDITION REMAINS UNCHANGED. SEE [facility] FOR FULL ASSESSMENT. NIGHT WAS RESTLESS AND PAATIENT STATES SEE DIDN'T SLEEP WELL.
--- NOTE | 2019-09-06 08:00 | NUR ---
ASSUMPTION OF CARE RECEIVED REPORT FROM STRAW HAT BRIM RAISER OPERATOR RN SURINDER. PT AAOX3 RESTING COMFORTABLY IN BED, NO S/S OF DISTRESS, VS STABLE. RESPIRATIONS EVEN & UNLABORED; PT CURRENTLY ON 5L O2 VIA NC, PULSE OX 98%. DROPLET ISOLATION PRECAUTONS IN PLACE FOR POSITIVE FLU/H1N1. BED LOCKED & IN LOWEST POSITION, CALL HAYS W/ IN REACH. WILL CONTINUE TO MONITOR.
--- NOTE | 2019-09-06 14:03 | NUR ---
BLADDER SCANNED PT PER MD ORDER. PT RETAINING 148 CC. PT STATES SHE VOIDED ABOUT 1 HOUR AGO. WILL CONTINUE TO MONITOR.
--- NOTE | 2019-09-06 16:48 | NUR ---
NO ACUTE CHANGES THROUGHOUT SHIFT. VS REMAINED STABLE. RENAL US COMPLETED AT BEDSIDE. IVF INFUSING @ 50ML/HR PER MD ORDER. REPORT GIVEN TO YOLIE INTERIANO ON MEDICAL FLOOR @ 1610. PT TRANSPORTED TO MEDICAL FLOOR RM 343 VIA WHEELCHAIR W/ MASK IN PLACE; 5L O2 VIA NC IN PLACE. ALL BELONGINGS SENT W/ PT.
--- NOTE | 2019-09-06 18:27 | NUR ---
REPORT RECEIVED FROM NAIN URBANO, PCU. NO ACUTE ISSUES NOTED UPON ARRIVAL TO THE MEDICAL FLOOR. PATIENT IS AWAKE AND ALERT AT THIS TIME. PATIENT IS ON 4 LITER O2 VIA NASAL CANULA. NO CURRENT COMPLAINTS OF PAIN OR DISCOMFORT NOTED. NO SHORTNESS OF BREATH NOTED. WILL CONTINUE TO MONITOR FOR CHANGES.
[2019-09-07 06:03] LABS: BASOPHILS ABSOLUTE AUTO 0.01 K/mm3 (0.00-0.23); BASOPHILS PERCENT AUTO 0 % (0-2); EOSINOPHILS PERCENT AUTO 0 % (0-6); Hematocrit 36.7 % (33.0-51.0); Hemoglobin 11.6 g/dL (11.5-16.0); Mean Corpuscular HGB 29.4 pg (26.0-34.0); Mean Corpuscular HGB Conc 31.6 g/dL (31.5-36.5); Mean Corpuscular Volume 93 fL (80-100); Mean Platelet Volume 10.6 fL (9.1-12.4); Platelet Count 167 K/mm3 (150-400); RDW Coefficient Variation 14.8 % (11.7-14.2); RDW Standard Deviation 50.5 fL (35.1-46.3); Red Blood Cell Count 3.95 M/mm3 (3.80-5.20); White Blood Cell Count 6.98 K/mm3 (4.00-11.30)
[2019-09-07 06:11] LABS: IMMATURE GRAN ABSOLUTE AUTO 0.02 K/mm3 (0.00-0.10); IMMATURE GRAN PERCENT AUTO 0 % (0-1); LYMPHOCYTES ABSOLUTE AUTO 1.47 K/mm3 (0.84-5.20); LYMPHOCYTES PERCENT AUTO 21 % (21-46); MONOCYTES ABSOLUTE AUTO 0.59 K/mm3 (0.16-1.47); MONOCYTES PERCENT AUTO 9 % (4-13); NEUTROPHILS ABSOLUTE AUTO 4.89 K/mm3 (1.96-9.15); NEUTROPHILS PERCENT AUTO 70 % (41-73)
[2019-09-07 06:46] LABS: Bun/Creatinine Ratio 40.7 (12.0-20.0); Calcium, Blood 8.3 mg/dL (8.5-10.1); Creatinine, Blood 1.35 mg/dL (0.40-1.00); Magnesium, Blood 2.4 mg/dL (1.6-2.4); Potassium, Blood 4.6 mmol/L (3.5-5.5)
--- NOTE | 2019-09-07 06:58 | NUR ---
VIDEO CAMERA OPERATOR SUMMARY Slept intermittantly and woke SOB and anxious pulling at CPAP mask. A&OX4, Somewhat tearful about being so sick with the flu. Complaints of pain in right shoulder down to hip relieved with one norco. This is baseline pain for her, Really harsh, dry cough after breathing treatments, then back to sleep. 02 sats when wearing 02 read in mid 90's. Excited about possible DC today.
--- NOTE | 2019-09-07 13:17 | NUR ---
DR ESCUDERO AND DR MARLEY IN TO SEE PT. PER DR ESCUDERO DISCHARGE PT WITH BUMEX 2MG PO DAILY AND TO SEE HIM ON SUNDAY AT [address] MARLEY NOTIFIED AND BUMEX 2MG PO DAILY ADDED.
[2019-09-07] MEDS ORDERED: AMLO10 PO (13:46)
[2019-09-07] MEDS ORDERED: Tamiflu30 MG PO (13:48)
[2019-09-07] MEDS ORDERED: AZIT250 PO (13:50)
[2019-09-07] MEDS ORDERED: Prednisone10 MG PO (13:50)
[2019-09-07] MEDS ORDERED: CEFP200 PO (13:51)
[2019-09-07] MEDS ORDERED: Bumetanide2 MG (13:51)
--- NOTE | 2019-09-07 14:44 | NUR ---
DISCHARGE INSTRUCTIONS REVIEWED WITH PT AND S.O. IV DC'D INTACT. MEDS FAXED TO [facility]. 02 SATS 91% ON ROOM AIR AT THIS TIME. PT REPORTS SHE HAS A CPAP AND CONCENTRATOR AT HOME. PT DISCHARGED HOME HOME WITH S.0. AT 1422 ESCORTED OUT VIA W/C.
== END 2019-09-07 14:22 | disposition home or self-care (01) | DRG 304 ==
LOC: ER 18:09 → PCU 18:10 → MEDS 09-06 16:50 → ENPENDDIS 09-07 13:31 → MEDS 09-07 14:22
PROVIDERS: Emergency Medicine; Hospitalist; Nurse Practitioner Acute Care; Student in an Organized Health Care Education/Training Program; ADMIT Internal Medicine
DX: I16.0 Hypertensive urgency (principal); G92 Toxic encephalopathy; F15.20 Other stimulant dependence, uncomplicated; N17.9 Acute kidney failure, unspecified; F32.9 Major depressive disorder, single episode, unspecified; E03.9 Hypothyroidism, unspecified; N18.3 Chronic kidney disease, stage 3 (moderate); I12.9 Hypertensive chronic kidney disease with stage 1 through stage 4 chronic kidney disease, or unspecified chronic kidney disease; F90.9 Attention-deficit hyperactivity disorder, unspecified type; F17.290 Nicotine dependence, other tobacco product, uncomplicated; J44.9 Chronic obstructive pulmonary disease, unspecified; E66.9 Obesity, unspecified; Z68.34 Body mass index [BMI] 34.0-34.9, adult; G47.33 Obstructive sleep apnea (adult) (pediatric); E11.22 Type 2 diabetes mellitus with diabetic chronic kidney disease; J10.1 Influenza due to other identified influenza virus with other respiratory manifestations; Z86.73 Personal history of transient ischemic attack (TIA), and cerebral infarction without residual deficits; G89.29 Other chronic pain; I35.0 Nonrheumatic aortic (valve) stenosis; T43.625A Adverse effect of amphetamines, initial encounter; Y92.9 Unspecified place or not applicable; Z99.81 Dependence on supplemental oxygen; Z79.82 Long term (current) use of aspirin
CPT/HCPCS: 0099U; 36415; 36600; 70450; 71045; 71046; 76770; 80048; 80053; 81001; 82140; 82803; 82947; 83690; 83735; 83880; 84100; 84145; 84484; 85025; 85027; 86140; 93005; 93010; 93306; 94640; 94644; 94660; 94762; 96361; 96374; 96375; 96376; 97110; 97116; 97163; 97166; 97530; 99285-25; A9270; A9270-GY; G0378; G0480; J0360; J0456; J0696; J1100; J2310; J2920; J3480; J7030; J7050; J7512; P9612

== ENCOUNTER 2020-04-26 21:22 | Emergency (ER) | payer OTHER ==
[~2020-04-26] VITALS: Ht 152.4 cm; Wt 90.7 kg
[~2020-04-26 21:22] MED LIST changes: +AMLO10 PO; +ASPIR 8181 M1 PO; +Bumetanide2 MG; +CEFP200 PO; +Prednisone10 MG PO; +STIOLTO RESPIMAT4 GM; +Tamiflu30 MG PO
== END 2020-04-26 23:23 | disposition left against medical advice (07) ==
LOC: ER 21:22
DX: R50.9 Fever, unspecified (principal); R10.9 Unspecified abdominal pain; Z53.21 Procedure and treatment not carried out due to patient leaving prior to being seen by health care provider
CPT/HCPCS: 71045; 99283

== ENCOUNTER → 2020-04-27 | Outpatient (CLI) | payer OTHER ==
[2020-04-27 15:59] LABS: BASOPHILS ABSOLUTE AUTO 0.03 K/mm3 (0.00-0.23); BASOPHILS PERCENT AUTO 0 % (0-2); EOSINOPHILS ABSOLUTE AUTO 0.24 K/mm3 (0.00-0.68); EOSINOPHILS PERCENT AUTO 2 % (0-6); IMMATURE GRAN ABSOLUTE AUTO 0.07 K/mm3 (0.00-0.10); IMMATURE GRAN PERCENT AUTO 1 % (0-1); LYMPHOCYTES ABSOLUTE AUTO 1.98 K/mm3 (0.84-5.20); LYMPHOCYTES PERCENT AUTO 13 % (21-46); MONOCYTES PERCENT AUTO 6 % (4-13); Mean Corpuscular HGB 29.9 pg (26.0-34.0); Mean Corpuscular HGB Conc 32.4 g/dL (31.5-36.5); Mean Corpuscular Volume 92 fL (80-100); Mean Platelet Volume 9.7 fL (9.1-12.4); NEUTROPHILS ABSOLUTE AUTO 11.83 K/mm3 (1.96-9.15); NEUTROPHILS PERCENT AUTO 79 % (41-73); Platelet Count 324 K/mm3 (150-400); RDW Coefficient Variation 15.1 % (11.7-14.2); RDW Standard Deviation 51.1 fL (35.1-46.3); Red Blood Cell Count 4.01 M/mm3 (3.80-5.20); White Blood Cell Count 15.05 K/mm3 (4.00-11.30)
[2020-04-27 16:08] LABS: Albumin, Blood 2.8 g/dL (3.4-5.0); Albumin/Globulin Ratio 0.5 (0.8-1.8); Bilirubin, Total 0.4 mg/dL (0.1-1.0); Bun/Creatinine Ratio 17.1 (12.0-20.0); Calcium, Blood 9.3 mg/dL (8.5-10.1); Creatinine, Blood 1.93 mg/dL (0.40-1.00); Globulin, Blood 5.1 g/dL (2.2-4.0); Potassium, Blood 3.9 mmol/L (3.5-5.5); Total Protein, Blood 7.9 g/dL (6.4-8.2)
[2020-04-29 12:41] LABS: CORNONAVIRUS (COVID19) CSH-NRL Negative (Negative)
== END | disposition home or self-care (01) ==
LOC: LAB EV 15:41 → LAB SHORT 15:41
PROVIDERS: Physician Assistant Medical
DX: R10.31 Right lower quadrant pain (principal); R05 Cough; Z20.828 Contact with and (suspected) exposure to other viral communicable diseases
CPT/HCPCS: 80053; 85025; U0003

== ENCOUNTER 2022-04-25 21:59 | Emergency (ER) | payer MEDICARE, OTHER ==
[~2022-04-25] VITALS: Ht 152.4 cm; Wt 85.6 kg
[2022-04-25 22:35] LABS: BASOPHILS ABSOLUTE AUTO 0.05 K/mm3 (0.00-0.23); BASOPHILS PERCENT AUTO 1 % (0-2); EOSINOPHILS PERCENT AUTO 2 % (0-6); Hematocrit 35.3 % (33.0-51.0); Hemoglobin 11.5 g/dL (11.5-16.0); IMMATURE GRAN ABSOLUTE AUTO 0.05 K/mm3 (0.00-0.10); IMMATURE GRAN PERCENT AUTO 1 % (0-1); LYMPHOCYTES ABSOLUTE AUTO 2.67 K/mm3 (0.84-5.20); LYMPHOCYTES PERCENT AUTO 29 % (21-46); MONOCYTES ABSOLUTE AUTO 0.82 K/mm3 (0.16-1.47); MONOCYTES PERCENT AUTO 9 % (4-13); Mean Corpuscular HGB 31.1 pg (26.0-34.0); Mean Corpuscular HGB Conc 32.6 g/dL (31.5-36.5); Mean Corpuscular Volume 95 fL (80-100); Mean Platelet Volume 9.6 fL (9.1-12.4); NEUTROPHILS ABSOLUTE AUTO 5.42 K/mm3 (1.96-9.15); NEUTROPHILS PERCENT AUTO 59 % (41-73); Platelet Count 310 K/mm3 (150-400); RDW Coefficient Variation 15.2 % (11.7-14.2); RDW Standard Deviation 52.5 fL (35.1-46.3); White Blood Cell Count 9.21 K/mm3 (4.00-11.30)
[2022-04-25 22:49] LABS: Alanine Aminotransfer (ALT/SGP 34 U/L (12-78); Albumin, Blood 2.7 g/dL (3.4-5.0); Albumin/Globulin Ratio 0.5 (0.8-1.8); Alk Phos 77 U/L (50-136); Anion Gap 6 mmol/L (6-16); Aspartate Aminotrans (AST/SGOT 39 U/L (12-37); Bilirubin, Total 0.4 mg/dL (0.1-1.0); Blood Urea Nitrogen 34 mg/dL (8-24); CO2, Blood 27 mmol/L (21-32); Calcium, Blood 9.1 mg/dL (8.5-10.1); Chloride, Blood 107 mmol/L (98-108); Ethanol (Alcohol), Blood, Med <3 mg/dL; Globulin, Blood 5.1 g/dL (2.2-4.0); Glomerular Filtration Rate 32 (60-); Glucose, Blood 173 mg/dL (70-99); Potassium, Blood 4.2 mmol/L (3.5-5.5); Sodium, Blood 140 mmol/L (136-145); Total Protein, Blood 7.8 g/dL (6.4-8.2)
[2022-04-25 23:11] LABS: International Normalized Ratio 1.22; Prothrombin Time Results 12.6 Sec (9.7-11.5)
[2022-04-25] MEDS ORDERED: PARO30 PO (23:21)
[2022-04-25] MEDS ORDERED: Ventolin/Prove6.7 GM (23:21)
== END 2022-04-26 04:25 | disposition short-term general hospital (02) ==
LOC: ER 21:59
PROVIDERS: Student in an Organized Health Care Education/Training Program
DX: I63.512 Cerebral infarction due to unspecified occlusion or stenosis of left middle cerebral artery (principal); R47.01 Aphasia; R29.706 NIHSS score 6; T78.3XXA Angioneurotic edema, initial encounter; R91.8 Other nonspecific abnormal finding of lung field; J44.9 Chronic obstructive pulmonary disease, unspecified; G47.30 Sleep apnea, unspecified; E03.9 Hypothyroidism, unspecified; F32.A Depression, unspecified; I13.0 Hypertensive heart and chronic kidney disease with heart failure and stage 1 through stage 4 chronic kidney disease, or unspecified chronic kidney disease; I50.9 Heart failure, unspecified; N18.30 Chronic kidney disease, stage 3 unspecified; F17.290 Nicotine dependence, other tobacco product, uncomplicated; Z88.2 Allergy status to sulfonamides; Z88.1 Allergy status to other antibiotic agents; Z88.8 Allergy status to other drugs, medicaments and biological substances; Z79.899 Other long term (current) drug therapy
CPT/HCPCS: 31500; 70450; 70496; 70498; 71045; 71250; 80053; 85025; 85610; 85730; 93005; 93010; 94002; 94644; 94664; A9270; G0480; J0171; J1200; J2250; J2704; J2930; J3010; J3101; J7030; J7050; Q9967

== ENCOUNTER 2022-05-06 19:50 | Emergency (ER) | payer MEDICARE, OTHER ==
[~2022-05-06] VITALS: Ht 149.9 cm; Wt 81.7 kg
[~2022-05-06 19:50] MED LIST changes: +PARO30 PO; +Ventolin/Prove6.7 GM
[2022-05-06 22:07] LABS: Influenza A, PCR NEGATIVE (NEGATIVE); Influenza B, PCR NEGATIVE (NEGATIVE); Resp Syncytial Virus, PCR NEGATIVE (NEGATIVE); SARS-Cov-2 (COVID-19) PCR, MMC NEGATIVE (NEGATIVE)
== END 2022-05-07 00:48 | disposition home or self-care (01) ==
LOC: ER 19:50
PROVIDERS: Student in an Organized Health Care Education/Training Program
DX: R11.10 Vomiting, unspecified (principal); R50.9 Fever, unspecified; J44.9 Chronic obstructive pulmonary disease, unspecified; I10 Essential (primary) hypertension; G47.30 Sleep apnea, unspecified; Z20.822 Contact with and (suspected) exposure to COVID-19; Z87.891 Personal history of nicotine dependence; Z88.2 Allergy status to sulfonamides; Z88.8 Allergy status to other drugs, medicaments and biological substances; Z79.899 Other long term (current) drug therapy
CPT/HCPCS: 0241U

== ENCOUNTER 2023-08-19 17:00 | Emergency (ER) | payer MEDICARE, OTHER ==
[~2023-08-19] VITALS: Ht 152.4 cm; Wt 83.9 kg
[2023-08-19] MEDS ORDERED: NS 1,000 ML IV SCH (17:15)
[2023-08-19 18:13] LABS: BASOPHILS ABSOLUTE AUTO 0.04 K/mm3 (0.00-0.23); BASOPHILS PERCENT AUTO 0 % (0-2); EOSINOPHILS ABSOLUTE AUTO 0.16 K/mm3 (0.00-0.68); EOSINOPHILS PERCENT AUTO 2 % (0-6); Hematocrit 42.4 % (33.0-51.0); IMMATURE GRAN ABSOLUTE AUTO 0.05 K/mm3 (0.00-0.10); IMMATURE GRAN PERCENT AUTO 1 % (0-1); LYMPHOCYTES ABSOLUTE AUTO 1.39 K/mm3 (0.84-5.20); LYMPHOCYTES PERCENT AUTO 13 % (21-46); MONOCYTES ABSOLUTE AUTO 0.58 K/mm3 (0.16-1.47); MONOCYTES PERCENT AUTO 6 % (4-13); Mean Corpuscular HGB 29.8 pg (26.0-34.0); Mean Corpuscular Volume 90 fL (80-100); NEUTROPHILS ABSOLUTE AUTO 8.33 K/mm3 (1.96-9.15); NEUTROPHILS PERCENT AUTO 79 % (41-73); Platelet Count 247 K/mm3 (150-400); RDW Coefficient Variation 13.5 % (11.7-14.2); RDW Standard Deviation 44.3 fL (35.1-46.3); White Blood Cell Count 10.55 K/mm3 (4.00-11.30)
[2023-08-19 18:33] LABS: Albumin, Blood 3.1 g/dL (3.4-5.0); Albumin/Globulin Ratio 0.6 (0.8-1.8); Bilirubin, Total 0.5 mg/dL (0.1-1.0); Bun/Creatinine Ratio 13.8 (12.0-20.0); Calcium, Blood 9.4 mg/dL (8.5-10.1); Creatinine, Blood 1.95 mg/dL (0.40-1.00); Globulin, Blood 4.8 g/dL (2.2-4.0); Potassium, Blood 4.5 mmol/L (3.5-5.5); Total Protein, Blood 7.9 g/dL (6.4-8.2)
[2023-08-19] MEDS ORDERED: Loperamide HCl 2 MG Cap PO ONE (20:15)
[2023-08-19] MEDS ORDERED: Ondansetron HCl 2 MG / ML 2ML Vial IV ONE (20:15)
[2023-08-19] MEDS ORDERED: RX Prepack 2 Tabs Ondansetron ODT 4MG UD ONE (21:45)
[2023-08-19] MEDS ORDERED: Loperamide2 MG PO (21:47)
[2023-08-19] MEDS ORDERED: ONDA4ODT MM (21:47)
[2023-08-19] MEDS ORDERED: Bismuth Subsalicylate 262 MG Chew PO ONE (21:50)
[2023-08-19 22:27] VITALS: BP 142/67
== END 2023-08-19 22:27 | disposition home or self-care (01) ==
LOC: ER 17:00
PROVIDERS: Physician Assistant
DX: E11.65 Type 2 diabetes mellitus with hyperglycemia (principal); R19.7 Diarrhea, unspecified; E86.0 Dehydration; E11.22 Type 2 diabetes mellitus with diabetic chronic kidney disease; G47.30 Sleep apnea, unspecified; E03.9 Hypothyroidism, unspecified; J44.9 Chronic obstructive pulmonary disease, unspecified; I12.9 Hypertensive chronic kidney disease with stage 1 through stage 4 chronic kidney disease, or unspecified chronic kidney disease; N18.30 Chronic kidney disease, stage 3 unspecified; Z88.2 Allergy status to sulfonamides; Z88.8 Allergy status to other drugs, medicaments and biological substances; Z88.1 Allergy status to other antibiotic agents; Z79.899 Other long term (current) drug therapy; Z79.82 Long term (current) use of aspirin; Z87.891 Personal history of nicotine dependence
CPT/HCPCS: 80053; 82947; 83036; 85025; 96361; 96374; 99284-25; A9270; J2405; J7030

== ENCOUNTER 2023-12-17 04:25 | Observation (INO) | payer MEDICARE, OTHER ==
[~2023-12-17] VITALS: Ht 152.4 cm; Wt 88.3 kg
[~2023-12-17 04:25] MED LIST changes: -ATOR40TA PO; -HYDR1TAB94 PO; +HYDROCODONE-AC1 EA19 PO; +LIPITOR80 MG PO; +Loperamide2 MG PO; +ONDA4ODT MM
[2023-12-17] MEDS ORDERED: BRINTELLIX10 MG PO (04:34)
[2023-12-17] MEDS ORDERED: CARVEDILOL6.25 MG PO (04:48)
[2023-12-17] MEDS ORDERED: METFORMIN HCL500 M3 PO (04:48)
[2023-12-17] MEDS ORDERED: EPINEPhrine HCl 1 MG/ML 1ML Amp IM ONE (04:50)
[2023-12-17] MEDS ORDERED: MethylPREDNISolone Sod Succ 125 MG Vial IV ONE (04:50)
[2023-12-17] MEDS ORDERED: Tranexamic Acid 100 ML IV ONE (04:55)
[2023-12-17 04:57] LABS: BASOPHILS ABSOLUTE AUTO 0.03 K/mm3 (0.00-0.23); BASOPHILS PERCENT AUTO 0 % (0-2); EOSINOPHILS ABSOLUTE AUTO 0.17 K/mm3 (0.00-0.68); EOSINOPHILS PERCENT AUTO 2 % (0-6); Hematocrit 38.5 % (33.0-51.0); Hemoglobin 12.8 g/dL (11.5-16.0); IMMATURE GRAN ABSOLUTE AUTO 0.03 K/mm3 (0.00-0.10); IMMATURE GRAN PERCENT AUTO 0 % (0-1); LYMPHOCYTES ABSOLUTE AUTO 2.01 K/mm3 (0.84-5.20); LYMPHOCYTES PERCENT AUTO 19 % (21-46); MONOCYTES ABSOLUTE AUTO 0.78 K/mm3 (0.16-1.47); MONOCYTES PERCENT AUTO 7 % (4-13); Mean Corpuscular HGB 29.8 pg (26.0-34.0); Mean Corpuscular HGB Conc 33.2 g/dL (31.5-36.5); Mean Corpuscular Volume 90 fL (80-100); Mean Platelet Volume 10.6 fL (9.1-12.4); NEUTROPHILS ABSOLUTE AUTO 7.74 K/mm3 (1.96-9.15); NEUTROPHILS PERCENT AUTO 72 % (41-73); Platelet Count 231 K/mm3 (150-400); RDW Coefficient Variation 13.8 % (11.7-14.2); RDW Standard Deviation 45.4 fL (35.1-46.3); Red Blood Cell Count 4.29 M/mm3 (3.80-5.20); White Blood Cell Count 10.76 K/mm3 (4.00-11.30)
[2023-12-17] MEDS ORDERED: DiphenhydrAMINE HCl 50 MG/ML 1ML Vial IV SCH (05:00)
[2023-12-17] MEDS ORDERED: EpiNEPhrine 1 MG/1 ML 1ML Vial IM ONE (05:00)
[2023-12-17 05:12] LABS: Albumin/Globulin Ratio 0.7 (0.8-1.8); Bilirubin, Total 0.5 mg/dL (0.1-1.0); Calcium, Blood 9.1 mg/dL (8.5-10.1); Creatinine, Blood 1.73 mg/dL (0.40-1.00); Globulin, Blood 4.4 g/dL (2.2-4.0); Potassium, Blood 3.8 mmol/L (3.5-5.5); Total Protein, Blood 7.4 g/dL (6.4-8.2)
[2023-12-17] MEDS ORDERED: Acetaminophen 325 MG TABLET PO PRN (05:40)
[2023-12-17] MEDS ORDERED: Ondansetron HCl 2 MG / ML 2ML Vial IV ONE (05:45)
[2023-12-17] MEDS ORDERED: Famotidine 10 MG/ML 2ML Vial IV SCH (06:00)
[2023-12-17] MEDS ORDERED: Carvedilol 6.25 MG Tab PO SCH (08:00)
[2023-12-17] MEDS ORDERED: MethylPREDNISolone Sod Succ 125 MG Vial IV SCH (09:00)
[2023-12-17 09:57] VITALS: BP 135/71
[2023-12-17 11:54] VITALS: BP 141/75
--- NOTE | 2023-12-17 14:29 | NUR ---
ASSUMED CARE OF PT WHILE PRIMARY RN TO LUNCH. PT RESTING IN BED. CALL LIGHT IN REACH, DENIES NEEDS.
[2023-12-17 15:03] VITALS: BP 145/57
[2023-12-17] MEDS ORDERED: OxyCODONE 5 mg/Acetamin 325 mg TABLET PO PRN (16:15)
[2023-12-17] MEDS ORDERED: Ipratropium/Albuterol SulF 2.5-0.5MG/3 ML Amp INH SCH (16:40)
[2023-12-17] MEDS ORDERED: MetFORMIN HCl 500 mg PO SCH (17:00)
[2023-12-17] MEDS ORDERED: ALPR.5 PO (17:25)
[2023-12-17] MEDS ORDERED: CLOP75 PO (17:27)
[2023-12-17] MEDS ORDERED: IPRAT-ALBUT 0.5-3 ML INH (17:29)
[2023-12-17] MEDS ORDERED: ALBU90OI INH (17:30)
--- NOTE | 2023-12-17 17:32 | NUR ---
SHIFT SUMMARY PT REMAINS ALERT AND ORIENTED. BP STABLE. HR REMAINS NSR. O2 SATS REMAIN ABOVE 90% ON 2L NC. PT COMPLAINED OF PAIN TO NECK DOWN TO LOWER BACK THAT WAS RELEIVED BY TYLENOL. PATIENT NO LONGER HAS SWELLING OF THE TONGUE. PT STATES IT FEELS BACK TO NORMAL. WILL CONTINUE TO MONITOR AND REPORT TO ONCOMING RN
[2023-12-17 19:25] VITALS: BP 146/67
--- NOTE | 2023-12-17 20:52 | NUR ---
CODE STATUS CHANGE PATIENT EXPRESSING DESIRE TO CHANGE CODE STATUS FROM DNR TO FULL CODE. EDUCATION PROVIDED REGARDING FULL CODE STATUS. PATIENT STATES UNDERSTANDING, STILL REQUESTING CODE CHANGE. MD SOMERS CONTACTED. RECEIVED ORDER TO CHANGE FROM DNR TO FULL CODE.
[2023-12-17] MEDS ORDERED: Atorvastatin 40 MG Tab PO SCH (21:00)
[2023-12-17 23:07] VITALS: BP 147/64
[2023-12-18 03:24] VITALS: BP 135/67
[2023-12-18 04:14] LABS: BASOPHILS PERCENT AUTO 0 % (0-2); EOSINOPHILS PERCENT AUTO 0 % (0-6); Hematocrit 35.3 % (33.0-51.0); Hemoglobin 11.9 g/dL (11.5-16.0); IMMATURE GRAN ABSOLUTE AUTO 0.03 K/mm3 (0.00-0.10); IMMATURE GRAN PERCENT AUTO 0 % (0-1); LYMPHOCYTES ABSOLUTE AUTO 0.85 K/mm3 (0.84-5.20); LYMPHOCYTES PERCENT AUTO 10 % (21-46); MONOCYTES ABSOLUTE AUTO 0.51 K/mm3 (0.16-1.47); MONOCYTES PERCENT AUTO 6 % (4-13); Mean Corpuscular HGB 30.3 pg (26.0-34.0); Mean Corpuscular HGB Conc 33.7 g/dL (31.5-36.5); Mean Corpuscular Volume 90 fL (80-100); Mean Platelet Volume 11.2 fL (9.1-12.4); NEUTROPHILS ABSOLUTE AUTO 6.82 K/mm3 (1.96-9.15); NEUTROPHILS PERCENT AUTO 83 % (41-73); Platelet Count 190 K/mm3 (150-400); RDW Coefficient Variation 13.6 % (11.7-14.2); RDW Standard Deviation 45.1 fL (35.1-46.3); Red Blood Cell Count 3.93 M/mm3 (3.80-5.20); White Blood Cell Count 8.21 K/mm3 (4.00-11.30)
[2023-12-18 04:35] LABS: Albumin, Blood 2.8 g/dL (3.4-5.0); Albumin/Globulin Ratio 0.7 (0.8-1.8); Bilirubin, Total 0.3 mg/dL (0.1-1.0); Bun/Creatinine Ratio 21.1 (12.0-20.0); Creatinine, Blood 1.75 mg/dL (0.40-1.00); Globulin, Blood 4.1 g/dL (2.2-4.0); Potassium, Blood 4.3 mmol/L (3.5-5.5); Total Protein, Blood 6.9 g/dL (6.4-8.2)
--- NOTE | 2023-12-18 04:37 | NUR ---
SHIFT SUMMARY THIS RN ASSUMED CARE AT APPROX 1915. NO ACUTE EVENTS OVERNIGHT. PATIENT RESTED QUIETLY T/O NIGHT. IS ALERT AND ORIENTED X4. PERRLA. MOVES ALL EXTREMITIES EQUALLY. COOPERATIVE WITH CARE. CODE STATUS CHANGED FROM DNR TO FULL CODE (SEE PREVIOUS NOTE). NO SWELLING OF THE TONGUE NOTED OR REPORTED. DENIES PAIN T/O NIGHT. TELEMETRY SHOWING SINUS 60s-70s. BP STABLE. DENIES CHEST PAIN, PRESSURE. ON 2L VIA NC, SATs >90%. RESPIRATIONS EVEN, UNLABORED. REPORTS HX OF ANNY WITH PRESCRIBED HOME CPAP USE. PATIENT DECLINED USE OF DEVICE WHILE IN HOSPITAL, REPORTS NONCOMPLIANCE WITH DEVICE AT HOME. EDUCATION PROVIDED. PUREWICK AND ATTENDS IN PLACE FOR URGE INCONTINENCE - CHANGING PRN TO KEEP C/D/I. CBG NOTED TO BE 366 PRIOR TO ASSUMPTION OF CARE. PATIENT RECEIVED PO GLUCOPHAGE PRIOR TO ASSUMPTION OF CARE. REPEAT SPOT CHECK CBG OBTAINED AROUND 0000 SHOWING 296. MORNING LAB GLUCOSE LEVEL 288. PATIENT IS A ONE PERSON ASSIST WITH FWW TO BSC, CHAIR. REPOSITIONING HERSELF INDEPENDENTLY IN BED. CALL LIGHT IN REACH. WILL CONTINUE TO MONITOR AND REPORT TO ONCOMING RN.
[2023-12-18] MEDS ORDERED: Ondansetron HCl 2 MG / ML 2ML Vial IV PRN (05:05)
--- NOTE | 2023-12-18 05:09 | NUR ---
PATIENT REPORTING NAUSEA, ABD DISCOMFORT. NO VOMITING. MD SOMERS CONTACTED. RECEIVED ORDER FOR IV ZOFRAN 4MG PRN Q6H. WILL ADMINISTER PER EMAR.
[2023-12-18] MEDS ORDERED: Levothyroxine Sodium 0.125 MG Tab PO SCH (06:00)
[2023-12-18 07:27] VITALS: BP 113/91
[2023-12-18] MEDS ORDERED: Enoxaparin 40 MG/0.4 ML SYR SC SCH (09:00)
[2023-12-18] MEDS ORDERED: AmLODIPine Besylate 5 MG Tab PO SCH (09:00)
[2023-12-18] MEDS ORDERED: Enoxaparin 30 MG/0.3 ML SYR SC SCH (09:00)
[2023-12-18] MEDS ORDERED: AMLO10 PO (09:33)
[2023-12-18] MEDS ORDERED: Percocet 5-3251 EACH PO (09:34)
[2023-12-18] MEDS ORDERED: DESV50 PO (09:35)
--- NOTE | 2023-12-18 10:04 | NUR ---
UPDATE PT DISCHARGED PER MD ORDERS. PT ESCORTED OUT BY PROFESSOR OF BUSINESS ADMINISTRATION BY WHEELCHAIR WITH ALL BELONGINGS. VSS PRIOR TO DISCHARGE.
--- NOTE | 2023-12-18 10:22 | NUR ---
PT DISCHARGED TO HOME WITH DISCHARGE ORDERS. PT HAS BEEN UP AMBULATING IN THE ROOM WITH THE WALKER. PT ON RA SATS 93-98%, PT DENIES CHEST PAIN, SOB OR PALPITATIONS. NO ANGIOEDEMA SYMPTOMS NOTED, PT HAS BEEN TOLERATING PO INTAKE, PT TOLERATING SOFT DIET/MINCED/MOIST. NO ISSUES WITH MORNING MEDS, PT TO STOP TAKING LISINOPRIL AND TRINTELLIX, SWTICHED TO AMLODIPINE AND PRINTIQ. VICODIN SWITCHED TO PERCOCET, PT WAS GIVEN A HARD SCIRPT FOR 7 DAYS. APPT SCHEDULED ON 12/24. PRESCRIPTIONS SENT TO [facility]. ALL NEW MEDICAITONS AND INSTRUCTIONS DISCOSED WITH THE PT, NO OTHER ISSUES ENCOUNTERED FOR THE SHIFT. PT ACCOMPANIED VIA WHEELCHAIR FOR TRANSPORT. ALL BELONGINGS SENT WITH THE PT.
== END 2023-12-18 10:04 | disposition home or self-care (01) ==
LOC: ER 04:25 → ICUE 04:26 → PCU 04:26
PROVIDERS: Family Medicine; Student in an Organized Health Care Education/Training Program; ADMIT Internal Medicine
DX: T78.3XXA Angioneurotic edema, initial encounter (principal); E11.22 Type 2 diabetes mellitus with diabetic chronic kidney disease; I12.9 Hypertensive chronic kidney disease with stage 1 through stage 4 chronic kidney disease, or unspecified chronic kidney disease; N18.32 Chronic kidney disease, stage 3b; J44.9 Chronic obstructive pulmonary disease, unspecified; G89.4 Chronic pain syndrome; I25.10 Atherosclerotic heart disease of native coronary artery without angina pectoris; E78.5 Hyperlipidemia, unspecified; F32.9 Major depressive disorder, single episode, unspecified; E03.9 Hypothyroidism, unspecified; I35.0 Nonrheumatic aortic (valve) stenosis; G47.33 Obstructive sleep apnea (adult) (pediatric); Z79.899 Other long term (current) drug therapy
CPT/HCPCS: 36415; 80053; 82947; 85025; 86900; 86901; 92610; 93005; 93010; 93306; 94640; 94762; 96372-59; 96374; 96375; 96376; 99285-25; A9270; G0378; J0171; J1200; J1650; J2405; J2919

== ENCOUNTER 2024-04-17 02:25 | Emergency (ER) | payer MEDICARE, OTHER ==
[~2024-04-17] VITALS: Ht 152.4 cm; Wt 84.4 kg
[~2024-04-17 02:25] MED LIST changes: +ALPR.5 PO; +BRINTELLIX10 MG PO; +CARVEDILOL6.25 MG PO; +CLOP75 PO; +DESV50 PO; +IPRAT-ALBUT 0.5-3 ML INH; +METFORMIN HCL500 M3 PO; +Percocet 5-3251 EACH PO
[2024-04-17] MEDS ORDERED: Ipratropium/Albuterol SulF 2.5-0.5MG/3 ML Amp INH ONE (03:00)
[2024-04-17 03:07] LABS: BASOPHILS ABSOLUTE AUTO 0.04 K/mm3 (0.00-0.23); BASOPHILS PERCENT AUTO 1 % (0-2); EOSINOPHILS PERCENT AUTO 4 % (0-6); Hematocrit 29.5 % (33.0-51.0); Hemoglobin 8.9 g/dL (11.5-16.0); IMMATURE GRAN ABSOLUTE AUTO 0.08 K/mm3 (0.00-0.10); IMMATURE GRAN PERCENT AUTO 1 % (0-1); LYMPHOCYTES ABSOLUTE AUTO 1.03 K/mm3 (0.84-5.20); LYMPHOCYTES PERCENT AUTO 13 % (21-46); MONOCYTES ABSOLUTE AUTO 0.59 K/mm3 (0.16-1.47); MONOCYTES PERCENT AUTO 8 % (4-13); Mean Corpuscular HGB 30.1 pg (26.0-34.0); Mean Corpuscular HGB Conc 30.2 g/dL (31.5-36.5); Mean Corpuscular Volume 100 fL (80-100); Mean Platelet Volume 9.7 fL (9.1-12.4); NEUTROPHILS ABSOLUTE AUTO 5.72 K/mm3 (1.96-9.15); NEUTROPHILS PERCENT AUTO 74 % (41-73); NRBC ABSOLUTE 0.03 K/mm3 (0.00-0.02); NRBC Auto 0.4 /100 WBC (0.0-0.2); Platelet Count 176 K/mm3 (150-400); RDW Coefficient Variation 18.6 % (11.7-14.2); RDW Standard Deviation 67.2 fL (35.1-46.3); Red Blood Cell Count 2.96 M/mm3 (3.80-5.20); White Blood Cell Count 7.76 K/mm3 (4.00-11.30)
[2024-04-17 03:19] LABS: Albumin, Blood 2.5 g/dL (3.4-5.0); Albumin/Globulin Ratio 0.5 (0.8-1.8); Bilirubin, Total 0.9 mg/dL (0.1-1.0); Bun/Creatinine Ratio 20.7 (12.0-20.0); Calcium, Blood 8.9 mg/dL (8.5-10.1); Creatinine, Blood 1.35 mg/dL (0.40-1.00); Globulin, Blood 4.8 g/dL (2.2-4.0); Potassium, Blood 4.7 mmol/L (3.5-5.5); Total Protein, Blood 7.3 g/dL (6.4-8.2)
[2024-04-17 04:39] LABS: International Normalized Ratio 1.05; Prothrombin Time Results 11.2 Sec (9.7-11.5)
[2024-04-17] MEDS ORDERED: Furosemide 10 MG / ML 2ML Vial IV ONE (04:45)
[2024-04-17] MEDS ORDERED: FURO20 PO (06:01)
[2024-04-17 07:15] VITALS: BP 155/64
== END 2024-04-17 07:30 | disposition home or self-care (01) ==
LOC: ER 02:25
PROVIDERS: Emergency Medicine
DX: I13.0 Hypertensive heart and chronic kidney disease with heart failure and stage 1 through stage 4 chronic kidney disease, or unspecified chronic kidney disease (principal); I50.9 Heart failure, unspecified; N18.30 Chronic kidney disease, stage 3 unspecified; D64.9 Anemia, unspecified; J45.909 Unspecified asthma, uncomplicated; E03.9 Hypothyroidism, unspecified; J44.9 Chronic obstructive pulmonary disease, unspecified; Z99.81 Dependence on supplemental oxygen; Z87.891 Personal history of nicotine dependence; Z86.73 Personal history of transient ischemic attack (TIA), and cerebral infarction without residual deficits; Z79.84 Long term (current) use of oral hypoglycemic drugs; Z79.899 Other long term (current) drug therapy; Z88.1 Allergy status to other antibiotic agents; Z88.8 Allergy status to other drugs, medicaments and biological substances
CPT/HCPCS: 71046; 80053; 83605; 83880; 84145; 84484; 85025; 85610; 85730; 93005; 93010; 94640; 94664; 96374; 99285-25; J1940

== ENCOUNTER 2024-06-15 07:23 | Inpatient (IN) | payer MEDICARE, OTHER ==
[~2024-06-15] VITALS: Ht 152.4 cm; Wt 79.8 kg
[~2024-06-15 07:23] MED LIST changes: +FURO20 PO
[2024-06-15 07:51] LABS: BASOPHILS ABSOLUTE AUTO 0.02 K/mm3 (0.00-0.23); BASOPHILS PERCENT AUTO 0 % (0-2); EOSINOPHILS ABSOLUTE AUTO 0.03 K/mm3 (0.00-0.68); EOSINOPHILS PERCENT AUTO 0 % (0-6); Hematocrit 28.7 % (33.0-51.0); Hemoglobin 8.9 g/dL (11.5-16.0); IMMATURE GRAN PERCENT AUTO 1 % (0-1); LYMPHOCYTES ABSOLUTE AUTO 0.71 K/mm3 (0.84-5.20); LYMPHOCYTES PERCENT AUTO 7 % (21-46); MONOCYTES ABSOLUTE AUTO 0.27 K/mm3 (0.16-1.47); MONOCYTES PERCENT AUTO 3 % (4-13); Mean Corpuscular HGB 28.2 pg (26.0-34.0); Mean Corpuscular Volume 91 fL (80-100); NEUTROPHILS ABSOLUTE AUTO 9.62 K/mm3 (1.96-9.15); NEUTROPHILS PERCENT AUTO 90 % (41-73); NRBC ABSOLUTE 0.03 K/mm3 (0.00-0.02); NRBC Auto 0.3 /100 WBC (0.0-0.2); Platelet Count 248 K/mm3 (150-400); RDW Coefficient Variation 15.6 % (11.7-14.2); RDW Standard Deviation 51.9 fL (35.1-46.3); Red Blood Cell Count 3.16 M/mm3 (3.80-5.20); White Blood Cell Count 10.75 K/mm3 (4.00-11.30)
[2024-06-15] MEDS ORDERED: Albuterol 2.5 MG/3 ML VIAL INH SCH (07:55)
[2024-06-15] MEDS ORDERED: MethylPREDNISolone Sod Succ 125 MG Vial IV ONE (07:55)
[2024-06-15 08:08] LABS: Albumin, Blood 2.6 g/dL (3.4-5.0); Albumin/Globulin Ratio 0.5 (0.8-1.8); Bilirubin, Total 0.4 mg/dL (0.1-1.0); Bun/Creatinine Ratio 25.9 (12.0-20.0); Calcium, Blood 8.9 mg/dL (8.5-10.1); Creatinine, Blood 1.43 mg/dL (0.40-1.00); Globulin, Blood 4.9 g/dL (2.2-4.0); Total Protein, Blood 7.5 g/dL (6.4-8.2)
[2024-06-15 08:56] LABS: Influenza A, PCR NEGATIVE (NEGATIVE); Influenza B, PCR NEGATIVE (NEGATIVE); Resp Syncytial Virus, PCR NEGATIVE (NEGATIVE); SARS-Cov-2 (COVID-19) PCR, MMC NEGATIVE (NEGATIVE)
[2024-06-15] MEDS ORDERED: FLU VACC TS2024-25(6MOS UP)/PF 45 MCG/0.5 ML SYRINGE IM ONE (12:25)
[2024-06-15] MEDS ORDERED: Ondansetron HCl 2 MG / ML 2ML Vial IV PRN (12:30)
[2024-06-15] MEDS ORDERED: Pantoprazole Sodium 40 MG Injection IV SCH (13:00)
[2024-06-15 14:41] VITALS: BP 132/104
[2024-06-15] MEDS ORDERED: Albuterol 2.5 MG/3 ML VIAL INH PRN (15:25)
[2024-06-15] MEDS ORDERED: Aspir 8181 MG PO (17:41)
[2024-06-15] MEDS ORDERED: FERSU300 PO (17:43)
[2024-06-15] MEDS ORDERED: FLUO10 PO (17:44)
[2024-06-15] MEDS ORDERED: Isosorbide Mono30 MG PO (17:45)
[2024-06-15] MEDS ORDERED: POTA10T PO (17:47)
[2024-06-15] MEDS ORDERED: TORS10 PO (17:47)
[2024-06-15] MEDS ORDERED: PANT40 PO (17:49)
[2024-06-15] MEDS ORDERED: INSULANI (17:53)
[2024-06-15] MEDS ORDERED: Insulin Regular 100 UNIT/ML 10ML Vial SC SCH (18:00)
--- NOTE | 2024-06-15 18:00 | NUR ---
SHIFT SUMMARY 1430 RECEIVED PT TO RM 303 VIA GURNEY FROM ER. PT ABLE TO TX SELF TO BED WITH 2P ASSIST. PT IS VERY WEAK AND UNSTEADY WELL HAVING DIFFICULTY FOLLOWING DIRECTIONS. PER PT AND REPORT, PT WITH HX OF RECENT CVA AND ME. SLIGHT L SIDE WEAKNESS NOTED. PT FROM [facility] VIA EMS FOR C/O SOB WITH SPO2 AT 82%. PER REPORT, PT HAD VOMITED BLOOD AT SOME POINT RESULTING IN GI CONSULT ORDER. DR LANCE NOTIFIED AT 1543 AND STATED THAT HE WOULD SEE THE PT THIS AFTERNOON. PT REPORTS BEING INCONTINENT OF BLADDER; ATTENDS ON. HX OF ANNY; CPAP TO RM BY RT FOR PT TO USE TONIGHT. PT ON 2L O2 AT BASELINE; COMING UP ON 4L AND BEING TITRATED DOWN TO 3L O2 BY RT. PT STATED THAT SHE IS DNR PER HER POLST; PT IS DNR PER ORDERS. CL DIET ORDERED TO PRESENT. MED REC OBTAINED FOR [facility] AND NOW UPDATED ON CHART; DR GEIGER AWARE. RESTING QUIETLY AT THIS TIME. CALL LT IN REACH.
[2024-06-15] MEDS ORDERED: OxyCODONE 5 mg/Acetamin 325 mg TABLET PO PRN (18:15)
[2024-06-15] MEDS ORDERED: CefTRIAXone Sodium 1,000 MG in NS 100 ML IV SCH (19:00)
[2024-06-15 19:22] LABS: Hematocrit 27.7 % (33.0-51.0); Hemoglobin 8.6 g/dL (11.5-16.0)
[2024-06-15] MEDS ORDERED: Azithromycin 500 MG in NS 250 ML IV SCH (20:00)
[2024-06-15 20:11] VITALS: BP 141/61
[2024-06-15] MEDS ORDERED: Insulin Glargine-Yfgn 100 Unit/mL 3 ML SYR SC SCH (21:00)
[2024-06-15] MEDS ORDERED: Lactobacil 2-S.Thermo-Bifido 1 1 Cap PO SCH (21:00)
[2024-06-16] VITALS (7 sets, daily range): BP systolic 100–147; BP diastolic 54–95
[2024-06-16] MEDS ORDERED: NS 250 ML IV PRN (00:05)
[2024-06-16 05:21] LABS: BASOPHILS ABSOLUTE AUTO 0.01 K/mm3 (0.00-0.23); BASOPHILS PERCENT AUTO 0 % (0-2); EOSINOPHILS PERCENT AUTO 0 % (0-6); Hematocrit 25.9 % (33.0-51.0); Hemoglobin 7.9 g/dL (11.5-16.0); IMMATURE GRAN ABSOLUTE AUTO 0.06 K/mm3 (0.00-0.10); IMMATURE GRAN PERCENT AUTO 1 % (0-1); LYMPHOCYTES ABSOLUTE AUTO 0.64 K/mm3 (0.84-5.20); LYMPHOCYTES PERCENT AUTO 7 % (21-46); MONOCYTES ABSOLUTE AUTO 0.34 K/mm3 (0.16-1.47); MONOCYTES PERCENT AUTO 4 % (4-13); Mean Corpuscular HGB Conc 30.5 g/dL (31.5-36.5); Mean Corpuscular Volume 92 fL (80-100); Mean Platelet Volume 9.5 fL (9.1-12.4); NEUTROPHILS ABSOLUTE AUTO 7.65 K/mm3 (1.96-9.15); NEUTROPHILS PERCENT AUTO 88 % (41-73); Platelet Count 193 K/mm3 (150-400); RDW Coefficient Variation 15.7 % (11.7-14.2); RDW Standard Deviation 52.1 fL (35.1-46.3); Red Blood Cell Count 2.82 M/mm3 (3.80-5.20)
[2024-06-16 05:46] LABS: Bun/Creatinine Ratio 29.1 (12.0-20.0); Calcium, Blood 9.2 mg/dL (8.5-10.1); Creatinine, Blood 1.65 mg/dL (0.40-1.00); Potassium, Blood 4.4 mmol/L (3.5-5.5)
[2024-06-16] MEDS ORDERED: Levothyroxine Sodium 0.125 MG Tab PO SCH (06:00)
[2024-06-16] MEDS ORDERED: Carvedilol 6.25 MG Tab PO SCH (08:00)
[2024-06-16] MEDS ORDERED: Atorvastatin 40 MG Tab PO SCH (09:00)
[2024-06-16] MEDS ORDERED: Aspirin 81 MG Chew PO SCH (09:00)
[2024-06-16] MEDS ORDERED: Potassium Chloride 10 Meq Tablet SA PO SCH (09:00)
[2024-06-16] MEDS ORDERED: Furosemide 10 MG/ML 4ML Vial IV SCH (09:00)
[2024-06-16] MEDS ORDERED: Clopidogrel Bisulfate 75 MG Tab PO SCH (09:00)
[2024-06-16] MEDS ORDERED: Venlafaxine HCl 75 MG CapCR PO SCH (09:00)
[2024-06-16] MEDS ORDERED: AmLODIPine Besylate 5 MG Tab PO SCH (09:00)
[2024-06-16] MEDS ORDERED: Isosorbide Mononitrate 30 MG TABCR PO SCH (09:00)
--- NOTE | 2024-06-16 09:00 | NUR ---
pt laying in bed very sleepy, will wake but returns to sleep when left alone, sats drop in the mid 80's on cpap, but recovers when awake, placed her on n/c once fully awake, maintaining sats, a/ox4 forgetful, pleasant and cooperative with care, follows commands well, lungs are dim with exp wheezing t/o, currently on 4 liters 02 via n/c, no cough noted, hrr, loud murmur noted, no edea noted, ppp+1, cap refill <3 sec, vs stable, afebrile, piv to lac site is clear and patent, btx4, abd flat soft nontender, voids via brief/purwick, skin c/w/d, maew, left side a bit weaker than right, call light in reach.
[2024-06-16] MEDS ORDERED: Lactated Ringer's 1,000 ML IV ONE (11:25)
[2024-06-16] MEDS ORDERED: Lactated Ringer's 1,000 ML IV SCH (11:35)
[2024-06-16] MEDS ORDERED: Etomidate 2MG / ML 10ML Vial ONE (11:35)
[2024-06-16] MEDS ORDERED: propofoL 20 ML IV ONE (11:35)
--- NOTE | 2024-06-16 11:42 | NUR ---
06/16/24 1142 Wayne Brown MONITOR INTACT WITH CONTINUOUS PULSE OXIMETRY, CONTINUOUS END TITAL CO2, AND INTERMITTENT BLOOD PRESSURE.AND EKG ANESTHESIA PER GREGG FOOD CLERK
[2024-06-16] MEDS ORDERED: Phenylephrine HCl 100 MCG/ML-NS 10MLSYR (1MG/10ML) ONE (11:55)
[2024-06-16] MEDS ORDERED: Lidocaine HCl 2% 20 ML MDV ONE (11:55)
[2024-06-16] MEDS ORDERED: Pantoprazole Sodium 40 MG Tab PO SCH (16:30)
--- NOTE | 2024-06-16 16:32 | NUR ---
SHIFT SUMMARY 5706 ASSUMED CARE OF PT AFTER RETURNING FROM EGD. SLIDE TX TO BED. PT VERY SLEEPY AFTER PROCEDURE. WAKES BRIEFLY TO ANS QUESTIONS AND WILL SMILE. VS TAKEN; SEE CHART. DR BARTHOLOMEW HERE TO SEE PT WELL. NEW ORDERS FROM DR LANCE FOR PT TO CHEW OR CRUSH ASA. MOST MEDS HELD THIS AM, PT WAS NPO AND DID NOT RETURN UNTIL THIS AFTERNOON. NO C/O. BED ALARM ON FOR SAFETY, CALL LT IN REACH.
--- NOTE | 2024-06-16 17:20 | NUR ---
1720 UPDATE GIVEN TO PT'S DAUGHTER, MARY GRACE. DAUGHTER WILL CALL PT TOMORROW.
[2024-06-17 04:35] VITALS: BP 142/62
[2024-06-17 07:36] VITALS: BP 146/68
[2024-06-17 12:28] LABS: PCO2 Arterial 74 mmHg (35-45); PO2 Arterial 85.1 mmHg (80-100); pH Blood Arterial 7.32 (7.35-7.45)
[2024-06-17] MEDS ORDERED: Ipratropium/Albuterol SulF 2.5-0.5MG/3 ML Amp INH SCH (13:00)
[2024-06-17 15:27] VITALS: BP 122/59
--- NOTE | 2024-06-17 17:49 | NUR ---
PATIENT HAS BEEN A/O X 4. PATIENT HAS BEEN ON 4-5L N/C DUE TO PATIENT OXYGEN DECREASING TO 79% WHEN OFF OXYGEN. PATIENT DOES USE A CPAP WITH 4L BLEED OVER FOR SLEEP. PATIENT HAS BEEN SLEEPING ON/OFF MOST OF THE SHIFT HOWEVER IS EASILY AWAKENED. PATIENT CALL FOR ANY ASSITANCE WHEN NEEDED. PATIENT IS INCONTINENT OF URINE HOWEVER CAN GET UP WITH 1-2 ASSIST WITH WALKER. PATIENT IS ABLE TO FEED SELF HOWEVER REQUEST ASSISTANCE OF STAFF IF AVAIABLE.
[2024-06-17 20:11] VITALS: BP 135/63
[2024-06-18 02:06] VITALS: BP 136/56
--- NOTE | 2024-06-18 07:22 | NUR ---
SWITCH OPERATOR SUMMARY NO SIGNIFICANT CHANGES OVERNIGHT. PT USES 3L WHILE AWAKE AND 4-6 WITH DEEP SLEEP R/T SLEEP APNEA WITH HER CPAP. PT HAS BEEN COMPLIANT WITH HER CPAP ALL NIGHT. PT LIKES TO TAKE ONE PAIN PILL A DAY AND SHE LIKES TO TAKE IT AT BEDTIME FOR HER FIBROMYALSIA SO SHE CAN SLEEP. PT APPEARED TO SLEEP WELL AND CALLED APPROPRIATELY. BED ALARM ON.
[2024-06-18 07:58] VITALS: BP 134/58
[2024-06-18 08:31] LABS: Base Excess Venous 12.7 mmol/L; PCO2 Venous 55.7 mmHg (38-42); pH Blood Venous 7.43 (7.34-7.37)
[2024-06-18 08:39] LABS: BASOPHILS ABSOLUTE AUTO 0.03 K/mm3 (0.00-0.23); BASOPHILS PERCENT AUTO 0 % (0-2); EOSINOPHILS ABSOLUTE AUTO 0.49 K/mm3 (0.00-0.68); EOSINOPHILS PERCENT AUTO 4 % (0-6); Hematocrit 25.5 % (33.0-51.0); IMMATURE GRAN ABSOLUTE AUTO 0.06 K/mm3 (0.00-0.10); IMMATURE GRAN PERCENT AUTO 1 % (0-1); LYMPHOCYTES ABSOLUTE AUTO 1.28 K/mm3 (0.84-5.20); LYMPHOCYTES PERCENT AUTO 11 % (21-46); MONOCYTES ABSOLUTE AUTO 0.66 K/mm3 (0.16-1.47); MONOCYTES PERCENT AUTO 6 % (4-13); Mean Corpuscular HGB 28.3 pg (26.0-34.0); Mean Corpuscular HGB Conc 31.4 g/dL (31.5-36.5); Mean Corpuscular Volume 90 fL (80-100); Mean Platelet Volume 9.4 fL (9.1-12.4); NEUTROPHILS ABSOLUTE AUTO 8.76 K/mm3 (1.96-9.15); NEUTROPHILS PERCENT AUTO 78 % (41-73); Platelet Count 181 K/mm3 (150-400); RDW Coefficient Variation 15.8 % (11.7-14.2); RDW Standard Deviation 51.6 fL (35.1-46.3); Red Blood Cell Count 2.83 M/mm3 (3.80-5.20); White Blood Cell Count 11.28 K/mm3 (4.00-11.30)
[2024-06-18 08:57] LABS: Albumin, Blood 2.4 g/dL (3.4-5.0); Albumin/Globulin Ratio 0.5 (0.8-1.8); Bilirubin, Total 0.5 mg/dL (0.1-1.0); Bun/Creatinine Ratio 27.5 (12.0-20.0); Calcium, Blood 9.1 mg/dL (8.5-10.1); Creatinine, Blood 1.42 mg/dL (0.40-1.00); Globulin, Blood 4.5 g/dL (2.2-4.0); Potassium, Blood 3.7 mmol/L (3.5-5.5); Total Protein, Blood 6.9 g/dL (6.4-8.2)
--- NOTE | 2024-06-18 10:49 | NUR ---
CONTACTED DR BARTHOLOMEW REGARDING EVALUATION FOR PATIENT MOBILITY STATUS AND ADL'S. PT/OT ORDERED BY HOSPTIALIST FOR EVAUATION
[2024-06-18] MEDS ORDERED: HUMULIN R100 UNIT/2 (15:26)
[2024-06-18] MEDS ORDERED: CEFD300 PO (15:28)
[2024-06-18] MEDS ORDERED: IPRAT-ALBUT 0.5-3 ML (15:28)
[2024-06-18] MEDS ORDERED: VISBIOME 112.51 EACH PO (15:28)
[2024-06-18 15:45] LABS: CORONAVIRUS COVID-19 AG Negative (NEGATIVE)
--- NOTE | 2024-06-18 16:15 | NUR ---
1610 discharged via non emergency transport van in wheelchair. pt reports she is happy to be returning to [facility]. pts denres phone and other belongings sent with patient
== END 2024-06-18 16:05 | DRG 377 ==
LOC: ER 07:23 → MEDS 12:25
PROVIDERS: Emergency Medicine; Internal Medicine; Internal Medicine Gastroenterology; ADMIT Family Medicine
PROC: 0DB68ZX Excision of Stomach, Via Natural or Artificial Opening Endoscopic, Diagnostic (ICD-10-PCS; principal; 2024-06-16 11:30)
DX: K25.4 Chronic or unspecified gastric ulcer with hemorrhage (principal); J96.21 Acute and chronic respiratory failure with hypoxia; I69.954 Hemiplegia and hemiparesis following unspecified cerebrovascular disease affecting left non-dominant side; I13.0 Hypertensive heart and chronic kidney disease with heart failure and stage 1 through stage 4 chronic kidney disease, or unspecified chronic kidney disease; N25.81 Secondary hyperparathyroidism of renal origin; D62 Acute posthemorrhagic anemia; Z95.5 Presence of coronary angioplasty implant and graft; K76.0 Fatty (change of) liver, not elsewhere classified; I25.10 Atherosclerotic heart disease of native coronary artery without angina pectoris; I25.2 Old myocardial infarction; I50.9 Heart failure, unspecified; E78.5 Hyperlipidemia, unspecified; I35.0 Nonrheumatic aortic (valve) stenosis; E11.22 Type 2 diabetes mellitus with diabetic chronic kidney disease; N18.32 Chronic kidney disease, stage 3b; G47.33 Obstructive sleep apnea (adult) (pediatric); Z91.199 Patient's noncompliance with other medical treatment and regimen due to unspecified reason; F90.9 Attention-deficit hyperactivity disorder, unspecified type; F32.A Depression, unspecified; F41.9 Anxiety disorder, unspecified; M79.7 Fibromyalgia; J44.9 Chronic obstructive pulmonary disease, unspecified; D63.1 Anemia in chronic kidney disease; G89.4 Chronic pain syndrome; Z90.49 Acquired absence of other specified parts of digestive tract; Z98.890 Other specified postprocedural states; Z87.891 Personal history of nicotine dependence; Z66 Do not resuscitate; Z88.2 Allergy status to sulfonamides; Z88.8 Allergy status to other drugs, medicaments and biological substances; Z79.82 Long term (current) use of aspirin
CPT/HCPCS: 0241U; 36415; 36600; 71045; 80048; 80053; 82803; 82947; 83880; 84145; 85014; 85018; 85025; 86850; 86900; 86901; 87426-QW; 88305; 88342; 93005; 93010; 94640; 94644; 94660; 94664; 94762; 96374; 97165; 97530; 99285-25; A9270; J0456; J0696; J1815; J1940; J2371; J2470; J2704; J2919; J7050; J7120